=== PATIENT | female | born 2000 | race African-American/Black ===

== ENCOUNTER 2023-06-23 15:30 | Outpatient (REF) | payer BC, SELFPAY | END 2023-06-23 15:31 | disposition home or self-care (01) | LOC: LBN 15:30 | PROVIDERS: Visit Provider Nurse Practitioner Family | DX: J02.9 Acute pharyngitis, unspecified (principal) | CPT/HCPCS: 87070 ==

== ENCOUNTER 2025-07-29 16:34 | Emergency (ER) | payer BC, SELFPAY ==
[2025-07-29 16:36] VITALS: BP 131/83; PULSE 102; RESP 16; TEMP 35.7; O2SAT 97
--- NOTE | 2025-07-29 16:52 | W.ED.GENAD ---
Discharge Plan Disposition Patient Disposition: Home Condition: Good Discharge Details Clinical Impression: Finger laceration Primary Care Provider: None,None ED Provider: Nissa Wang Home Meds and New Rx's Prescriptions: No Action No Known Home Meds Discharge Instructions Instructions: Laceration Repair With Stitches ED Additional Instructions: Please have your sutures removed in 10 to 14 days. Can have this done at the emergency department Keep the wound clean and dry. Wash daily antibacterial soap and water. Apply a thin layer of triple antibiotic ointment or bacitracin. Cover with a nonstick bandage. Have signs of infection such as redness, swelling, pus drainage, increasing pain, streaking up your finger, fever/chills. No sign of these, please seek care immediately. HPI General Date/Time Provider Initiated Documentation: 07/29/25 16:39. HPI Narrative: Taty is a 24 year female who presents to the ED for evaluation of L distal ring finger laceration. Injury occurred while opening a can. Bleeding has ceased, well-controlled with gauze. Full finger mobility and no loss of sensation. Also sustained superficial lacerations that are much smaller today pinky and thumb. No history of bleeding disorders or sickle cell disease. Last tetanus vaccination 3 years ago. Related Data Home Medications ?Medication ?Instructions ?Recorded ?Confirmed Unknown [No Known Home Meds] 07/29/25 07/29/25 Allergies Allergy/AdvReac Type Severity Reaction Status Date / Time No Known Allergies Allergy Unverified 07/29/25 16:41 General Stated Complaint: Laceration EDUARD: 4 Exam Narrative Exam Narrative: General Appearance: Normal. Alert and oriented, no acute distress Vital signs: Within normal limits. Mild tachycardia noted, consistent with anxiety Back, Musculoskeletal: Full finger mobility, good sensation. Skin: 1 centimeter U-shaped finger laceration to the pad of the distal left index finger, minimal bleeding. Neurological: Sensation intact. +CMS to finger Psychiatric: Normal. Course Vital Signs Vital signs: Vital Signs Temperature 35.7 C L 07/29/25 16:36 Pulse 102 H 07/29/25 16:36 Respiratory Rate 16 07/29/25 16:36 Blood Pressure 131/83 07/29/25 16:36 Pulse Oximetry 97 07/29/25 16:36 Temperature 35.7 C L 07/29/25 16:36 Temperature Source Oral 07/29/25 16:36 Pulse 102 H 07/29/25 16:36 Respiratory Rate 16 07/29/25 16:36 Blood Pressure 131/83 07/29/25 16:36 Pulse Oximetry 97 07/29/25 16:36 Oxygen Delivery Method Room Air 07/29/25 16:36 Oxygen Flow Rate 0 07/29/25 16:36 Procedure Laceration Laceration 1: Date of Procedure: 07/29/25 Provider that performed the procedure: Nissa Olvera Patient Consented: Verbally Site: hand Side (If applicable): left Description: flap Depth: simple, single layer Local anesthetic: Lidocaine 2% and LET(lidocaine epinephrine tetracaine) Amount of anesthesia used (mL): 1 Pre-repair:: wound explored, irrigated extensively and deep structures intact Skin layer closed with: nylon Suture size: 5-0 Number of sutures:: 3 Medical Decision Making 24-year-old female with hand laceration. Differential Diagnosis: Hand laceration, no bleeding disorders or sickle cell disease. No red flags concerning for foreign body or neurovascular compromise. Full extension and lection, no concern for tendon involvement. Superficial laceration, no concern for bony involvement. ED Course: LET applied, wound irrigated extensively with tap water and cleansed with ChloraPrep. 1 cc 2% lidocaine injected locally with good effect., Fully explored wound to the base in a bloodless field. No foreign bodies visualized. 3 simple interrupted sutures placed, 5-0 Ethilon. Tolerated procedure well. Clinical Impression: Hand laceration. Reviewed discharge instructions with patient, including symptomatic management, wound care, and red flags indicate need for return to emergency care. She voices agreement plan of care Follow-Up: Keep wound clean, monitor for infection, return if increased pain, redness, or swelling. Patient consented to the use of ABDOULAYE PFSH All Active Problems (Updated 07/29/25 @ 18:02 by Nissa Olvera) Finger laceration (Acute) Social History Smoking risk assessment performed?: No
[2025-07-29] MEDS: Lidocaine/Epinephri/Tetracaine Topical Gel 3 ML (18:07)
[2025-07-29] MEDS: Lidocaine 2% Multi-Dose 50 ML VIAL (18:07)
--- NOTE | 2025-07-29 18:16 | NUR.NOTE ---
Nursing Note: lac dressed with bacitracin non adhearnt dressing with gauze and coban. PT verbalized her understanding of wound care
== END 2025-07-29 18:18 | disposition home or self-care (01) ==
PROVIDERS: Emergency Provider Nurse Practitioner Family
DX: S61.215A Laceration without foreign body of left ring finger without damage to nail, initial encounter (principal); X58.XXXA Exposure to other specified factors, initial encounter
CPT/HCPCS: 12001; J2003

== ENCOUNTER 2025-08-08 23:43 | Emergency (ER) | payer BC, SELFPAY ==
[2025-08-08 23:46] VITALS: BP 125/78; PULSE 106; RESP 18; TEMP 36.8; O2SAT 100
[2025-08-08 23:52] VITALS: RESP 18
--- NOTE | 2025-08-08 23:52 | W.ED.GENAD ---
Discharge Plan Disposition Patient Disposition: Home Condition: Good Discharge Details Clinical Impression: Visit for suture removal Primary Care Provider: None,None ED Provider: Charlie Roca Home Meds and New Rx's Prescriptions: No Action No Known Home Meds Discharge Instructions Additional Instructions: Your sutures have been removed. Please monitor closely for any redness or drainage. A small amount of skin glue has been applied to aid in tissue healing. If you notice any worsening of your symptoms, or any new symptoms such as vomiting, diarrhea, fever, chills, shortness of breath, chest pain, numbness, weakness, or fainting , please return immediately to the emergency department for reevaluation. Please follow up with your primary care provider as soon as possible for reassessment and reevaluation. As always, it was a pleasure participating in your medical care today. HPI General Date/Time Provider Initiated Documentation: 08/08/25 23:52. HPI Narrative: This is a pleasant 24-year-old female who presents for suture removal. Sutures have been in for 10 days, and she has tolerated them well. No redness or change in sensation. No other complaints. Related Data Home Medications ?Medication ?Instructions ?Recorded ?Confirmed Unknown [No Known Home Meds] 07/29/25 07/29/25 Allergies Allergy/AdvReac Type Severity Reaction Status Date / Time No Known Allergies Allergy Unverified 07/29/25 16:41 General Stated Complaint: [employer] EDUARD: 4 Exam Narrative Exam Narrative: [address], no evidence of dehiscence, redness infection or drainage Course Vital Signs Vital signs: Vital Signs Temperature 36.8 C 08/08/25 23:46 Pulse 106 H 08/08/25 23:46 Respiratory Rate 18 08/08/25 23:46 Blood Pressure 125/78 08/08/25 23:46 Pulse Oximetry 100 08/08/25 23:46 Temperature 36.8 C 08/08/25 23:46 Temperature Source Tympanic 08/08/25 23:46 Pulse 106 H 08/08/25 23:46 Respiratory Rate 18 08/08/25 23:46 Blood Pressure 125/78 08/08/25 23:46 Blood Pressure Position Sitting 08/08/25 23:46 Pulse Oximetry 100 08/08/25 23:46 Oxygen Delivery Method Room Air 08/08/25 23:46 Oxygen Flow Rate 0 08/08/25 23:46 Pain Level 0 08/08/25 23:46 Medical Decision Making This is a pleasant 24-year-old female who presents for suture removal. Sutures have been in for 10 days, and she has tolerated them well. No redness or change in sensation. No other complaints. [address], no evidence of redness dehiscence or drainage. All 3 sutures were removed without complication. Patient tolerated this well. Small amount of Dermabond was placed over the finger for good wound strengthening. I have extensively reviewed the treatment plan and discharge instructions with the patient. I have addressed all patient concerns at this time. The patient was made aware of what symptoms to monitor for that would warrant a return to the emergency department. Discussed the plan with the patient, they demonstrate verbal understanding and agreement with our assessment and plan at this time. The documentation in this chart was dictated using [employer] dictation software. Please excuse any dictation errors. PFSH All Active Problems (Updated 08/08/25 @ 23:54 by Charlie Roca DO) Visit for suture removal (Acute) Finger laceration (Acute) Social History Smoking/Tobacco Use Status: Never Smoking risk assessment performed?: Yes Alcohol Intake: never Do you feel safe at home: Yes Do you feel safe in your relationship?: Yes
== END 2025-08-09 00:11 | disposition home or self-care (01) ==
PROVIDERS: Emergency Provider Student in an Organized Health Care Education/Training Program
DX: Z48.02 Encounter for removal of sutures (principal)